=== PATIENT | female | born 1950 | race Caucasian/White ===

== ENCOUNTER 2020-05-10 09:00 | Day surgery (SDC) | payer MEDICARE, OTHER ==
[~2020-05-10] VITALS: Ht 162.6 cm; Wt 89.4 kg
--- NOTE | ~2020-05-10 | OR ---
[facility] [address], [place] [address] Draft DATE OF OPERATION: 05/10/2020 SURGEON: Petar Boland MD PREOPERATIVE DIAGNOSES: Nasal obstruction due to septal deformity and inferior turbinate hypertrophy. 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 PROCEDURE: Septoplasty, cautery bilateral inferior turbinates, submucosal. ANESTHESIA: General LMA. ACCOUNTS RECEIVABLE COLLECTOR: Rock. PREOPERATIVE HISTORY: Usha Duque is a 69-year-old lady with nasal obstruction, difficulty tolerating CPAP for obstructive sleep apnea. Exam in the office had shown septal deformity, which was obstructive inferior turbinate hypertrophy, which was obstructive. She has been unresponsive to appropriate medications. She is taken to the operating room for the above-mentioned procedures. OPERATIVE PROCEDURE AND FINDINGS: After informed consent, the patient was taken to the operating room, placed in the supine position where general LMA anesthesia was induced. The patient and procedure were verified. The patient received preoperative intravenous Ancef and intranasal oxymetazoline. Headlight speculum exam of the nasal cavity showed bilateral septal deformities, spurs, cartilage, a 1% lidocaine with epi was injected in the septal mucosa. Mucosa was elevated off the deviated septal cartilage and bone with Henry elevator. Philly was used to excise the deviated septal cartilage and bone and the septum was medialized, airway improved in this manner. Inferior turbinates were then cauterized with a long handle needle point cautery starting on the right side, multiple passes, submucosal on the medial and inferior surface of the inferior turbinate extending all the way anteriorly back posteriorly. Excellent shrinkage of the turbinate was obtained in this manner. Same procedure on the PATIENT NAME: USHA ROB OPERATIVE REPORT DATE OF : 48 REPORT #: [id number] PHYSICIAN: PETAR BOLAND MD PCP: MOISES BENDER DO REPORT IS CONFIDENTIAL AND NOT TO BE RELEASED WITHOUT AUTHORIZATION [facility] [address], [place] [address] Draft left inferior turbinate, minimal bleeding stopped afterwards. Packing was placed, trimmed Merocel equal amount each side, coated with Neosporin, tied anteriorly over a pad one piece each side. The pharynx was suctioned clear of blood secretions. Hemostasis was verified. The patient was then awakened, extubated, transported to the recovery room in good condition. No complications. BLOOD LOSS: Minimal. SPECIMEN: No specimen. DRAINS: No drains. PACKING: One piece of Merocel each nostril. Petar Boland MD /MODL /[id number] Copies: ~ PATIENT NAME: USHA ROB OPERATIVE REPORT DATE OF : 48 REPORT #: [id number] PHYSICIAN: PETAR BOLAND MD PCP: MOISES BENDER DO REPORT IS CONFIDENTIAL AND NOT TO BE RELEASED WITHOUT AUTHORIZATION
[2020-05-10] MEDS ORDERED: LEVOTHYROXINE88 MCG PO (09:17)
[2020-05-10] MEDS ORDERED: TRIAMTERENE-HC1 EAC1 PO (09:18)
[2020-05-10] MEDS ORDERED: LISINOPRIL5 MG PO (09:19)
[2020-05-10] MEDS ORDERED: ALLOPURINOL100 MG PO (09:19)
[2020-05-10] MEDS ORDERED: K-TAB10 MEQ PO (09:22)
[2020-05-10] MEDS ORDERED: GABAPENTIN300 MG PO (09:22)
[2020-05-10] MEDS ORDERED: CLONAZEPAM1 MG PO (09:23)
[2020-05-10] MEDS ORDERED: ZOLPIDEM TARTRAT5 MG PO (09:23)
[2020-05-10] MEDS ORDERED: DULOXETINE HCL30 MG PO (09:23)
[2020-05-10] MEDS ORDERED: VITAMIN D350 MC1 PO (09:24)
[2020-05-10] MEDS ORDERED: PROBIOTIC1 EAC1 PO (09:25)
[2020-05-10] MEDS ORDERED: CALCIUM + VITA1 EACH PO (09:25)
[2020-05-10] MEDS ORDERED: VITAMIN C1000 MG PO (09:26)
[2020-05-10] MEDS ORDERED: ALLEGRA-D 12 H1 EACH PO (09:27)
[2020-05-10] MEDS ORDERED: FLONASE ALLERG9.9 ML NAS (09:42)
--- NOTE | 2020-05-10 11:18 | NUR ---
05/10/20 Janette8 Yanci Mendoza 1110-PATIENT ARRIVED TO PACU ON 6L MASK REACTIVE TO VERBAL STIMULI EYES CLOSED. VERY DROWSY RR EVEN. IVF INFUSING. DRESSING TO NOSE CDI WITH PACKING. 1117-PATIENT AROUSING TO VERBAL STIMULI EYES CLOSED. DENIES PAIN OR NAUSEA. RR EVEN. 6L MASK 97%
--- NOTE | 2020-05-10 11:59 | NUR ---
PATIENT BACK IN DAY SURGERY ROOM FROM PACU. DENIES PAIN. VS CHECKED. IV SITE WNL. MOUSTACHE DRESSING IN PLACE WITH SMALL AMOUNT OF RED DRAINAGE. PATIENT TOLERATING WATER. SCDs ON. CALL LIGHT WITHIN REACH.
[2020-05-10] MEDS ORDERED: KEFLEX500 MG PO (12:53)
[2020-05-10] MEDS ORDERED: HYDROCODON-ACE1 EA10 PO (12:53)
--- NOTE | 2020-05-10 13:41 | NUR ---
1245: PATIENT'S WATER REFILLED. DENIES PAIN. VS CHECKED. AT BEDSIDE. CALL LIGHT WITHIN REACH. 1315: DISCHARGE INSTRUCTIONS GIVEN TO PATIENT AND . IV DC'D WNL. TIP INTACT. DRESSING APPLIED. PATIENT ASSISTED OOB AND TO GET DRESSED. GAIT STEADY. 1330: PATIENT DISCHARGED TO HOME WITH VIA WHEELCHAIR.
--- NOTE | 2020-05-11 16:35 | EKG ---
[facility] [address] [facility] [place], [place] [address] Signed Normal sinus rhythm Normal ECG No previous ECGs available Confirmed by DIONNE MILAN DO ([id number]) on 05/11/2020 4:35:19 PM Electronically Signed By: DIONNE MILAN DO 05/11/20 1635 PATIENT NAME: DARRONWILDE JESSE Electrocardiogram DATE OF : 48 PHYSICIAN: DIONNE MILAN DO REPORT #: [id number] REPORT IS CONFIDENTIAL AND NOT TO BE RELEASED WITHOUT AUTHORIZATION
== END 2020-05-10 13:30 | disposition home or self-care (01) ==
LOC: DS 09:00 → OPS 09:00 → DS 10:45 → OPS 13:30
PROVIDERS: Otolaryngology
PROC: 09BM0ZZ Excision of Nasal Septum, Open Approach (ICD-10-PCS; principal; 2020-05-10 10:45)
PROC: 09BL0ZZ Excision of Nasal Turbinate, Open Approach (ICD-10-PCS; 2020-05-10 10:45)
DX: J34.2 Deviated nasal septum (principal); J34.3 Hypertrophy of nasal turbinates; J34.89 Other specified disorders of nose and nasal sinuses; G47.30 Sleep apnea, unspecified; I12.9 Hypertensive chronic kidney disease with stage 1 through stage 4 chronic kidney disease, or unspecified chronic kidney disease; N18.2 Chronic kidney disease, stage 2 (mild); Z99.89 Dependence on other enabling machines and devices; Z79.899 Other long term (current) drug therapy
CPT/HCPCS: 00160; 80048; 93005; 93010; J0690; J1100; J2001; J2405; J2704; J3010; J7121